=== PATIENT | male | born 2005 | race Two or more races ===

== ENCOUNTER 2024-11-09 15:32 | Emergency (ER) | payer SELFPAY ==
[~2024-11-09] VITALS: Ht 167.6 cm; Wt 72.7 kg
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
[2024-11-09] MEDS ORDERED: IBUP-1455 PO (16:48)
[2024-11-09] MEDS ORDERED: CYCL-837 PO (16:48)
[2024-11-09] MEDS: HYDROcodone-ACET 5/325MG TAB PO ONE (17:42)
[2024-11-09 17:49] VITALS: BP 147/81; PULSE 76; RESP 16; TEMP 97.9; O2SAT 99
== END 2024-11-09 17:51 | disposition home or self-care (01) ==
LOC: EDBD 15:32 → EDUNIT# 15:32 → ER 15:41
DX: S16.1XXA Strain of muscle, fascia and tendon at neck level, initial encounter (principal); S40.012A Contusion of left shoulder, initial encounter; V89.2XXA Person injured in unspecified motor-vehicle accident, traffic, initial encounter; Y93.89 Activity, other specified; Y92.410 Unspecified street and highway as the place of occurrence of the external cause; Y99.8 Other external cause status
CPT/HCPCS: 73030